=== PATIENT | male | born 1970 | race Caucasian/White ===

== ENCOUNTER 2018-03-02 19:48 | Inpatient (IN) | payer OTHER ==
--- NOTE | 2018-03-02 19:56 | CPEKG ---
Heart Rate: 96 RR Interval: 625 P-R Interval: 160 QRSD Interval: 94 QT Interval: 360 QTC Interval: 455 P [place]: 52 QRS [place]: 30 T Wave [place]: 45 EKG Severity - BORDERLINE ECG - EKG Impression: SINUS RHYTHM EKG Impression: st depression lateral leads EKG Impression: PROBABLE LEFT ATRIAL ABNORMALITY Electronically Signed By: Venkat Spence 02-Mar-2018 21:47:20
[2018-03-02] MEDS ORDERED: ASPIRIN EC 325 MG TAB PO ONE (20:03)
[2018-03-02] MEDS ORDERED: ASPIRIN 81 MG CHEWABLE TAB ONE (20:04)
[2018-03-02] MEDS ORDERED: NITROGLYCERIN 0.4 MG BTL SL ONE (20:05)
[2018-03-02] MEDS ORDERED: ASPIRIN 81 MG CHEWABLE TAB PO ONE (20:06)
--- NOTE | 2018-03-02 20:09 | EDPHY ---
H & P Time Seen by Provider: 03/02/18 19:53 HPI/ROS: CHIEF COMPLAINT: Left-sided chest pressure HISTORY OF PRESENT ILLNESS: Patient is a 47-year-old male with no significant past medical history who reports 2 days of left-sided chest pressure. He reports dull pressure-like sensation in the left chest starting yesterday during the day. There is no association with exertion. He denies any shortness of breath. He does report feeling sweaty. Pressure does not radiate. He has no prior history of coronary artery disease, dyslipidemia, diabetes. He does not smoke. He has no history of DVT or PE denies any cough or leg swelling. Does have a strong family history of [place] his father has had 7 heart attacks the 1st of which was in he was 46. He had a stress test done at the age of 41 which he reports was normal. REVIEW OF SYSTEMS: Constitutional: No fever, no chills. Eyes: No discharge. ENT: No sore throat. Cardiovascular: + chest pain, no palpitations. Respiratory: No cough, no shortness of breath. Gastrointestinal: No abdominal pain, no vomiting. Genitourinary: No hematuria. Musculoskeletal: No back pain. Skin: No rashes. Neurological: No headache. (Yong Garrido) Physical Exam: General Appearance: Alert and no distress. Eyes: Pupils equal and round no injection. Respiratory: Chest is nontender, lungs are clear to auscultation. Cardiac: regular rate and rhythm. Gastrointestinal: Abdomen is soft and nontender, no masses, bowel sounds normal. Musculoskeletal: Neck is supple and nontender. Extremities have full range of motion and are nontender. No lower extremity edema or unilateral calf swelling. Skin: No rashes or lesions. (Yong Garrido) Constitutional: Initial Vital Signs Temperature (C) 36.5 C 03/02/18 19:52 Heart Rate 97 03/02/18 19:52 Respiratory Rate 18 03/02/18 19:52 Blood Pressure 167/97 H 03/02/18 19:52 O2 Sat (%) 99 03/02/18 19:52 O2 Delivery Mode Room Air Allergies/Adverse Reactions: No Known Allergies Allergy (Verified 03/02/18 20:49) Home Medications: Medication Instructions Recorded NK [No Known Home Meds] 03/02/18 Medical Decision Making - Diagnostics EKG Interpretation: EKG: Complete interpretation has been separately recorded in the [facility] archive. Summary impression: Sinus rhythm, rate 96, ST segment depression noted in the lateral leads. (Venkat Spence) Imaging Results: Imaging Impressions Chest X-Ray 03/02/18 20:02 Impression: 1. No active cardiopulmonary disease seen. Other Provider: PHYSICIAN DOCUMENTATION: The patient was evaluated and managed by the Physician Tapping Machine Operator Automatic. My co- signature indicates that I have reviewed this chart and I agree with the findings and plan of care as documented. I am the secondary supervising physician. (Venkat Spence) - Data Points Laboratory Results: Laboratory Results 03/02/18 19:55 03/02/18 19:55 03/02/18 03/02/18 03/02/18 20:03 19:55 19:55 WBC RBC Hgb Hct MCV MCH MCHC RDW Plt Count Sodium 137 mEq/L mEq/L (135-145) Potassium 3.2 mEq/L L mEq/L (3.3-5.0) Chloride 105 mEq/L mEq/L (97-110) Carbon Dioxide 23 mEq/l mEq/l (22-31) Anion Gap 9 mEq/L mEq/L (8-16) BUN 20 mg/dL mg/dL (7-23) Creatinine 1.0 mg/dL mg/dL (0.7-1.3) Estimated GFR > 60 Glucose 103 mg/dL H mg/dL (70-100) Calcium 9.5 mg/dL mg/dL (8.5-10.4) POC Troponin I 0.00 ng/mL ng/mL (0.00-0.08) TSH Pending 03/02/18 19:55 WBC 8.28 10^3/uL 10^3/uL (3.80-9.50) RBC 5.18 10^6/uL 10^6/uL (4.40-6.38) Hgb 16.0 g/dL g/dL (13.7-17.5) Hct 44.2 % % (40.0-51.0) MCV 85.3 fL fL (81.5-99.8) MCH 30.9 pg pg (27.9-34.1) MCHC 36.2 g/dL g/dL (32.4-36.7) RDW 12.7 % % (11.5-15.2) Plt Count 182 10^3/uL 10^3/uL (150-400) Sodium Potassium Chloride Carbon Dioxide Anion Gap BUN Creatinine Estimated GFR Glucose Calcium POC Troponin I TSH Medications Given: Discontinued Medications Aspirin (Aspirin) 324 mg PO EDNOW ONE Stop: 03/02/18 20:07 Last Admin: 03/02/18 20:06 Dose: 324 mg Aspirin Buffered (Aspirin Ec) 325 mg PO EDNOW ONE Stop: 03/02/18 20:04 Last Admin: 03/02/18 20:07 Dose: Not Given Lorazepam (Ativan Injection) 0.5 mg IVP ONCE ONE Stop: 03/02/18 21:09 Last Admin: 03/02/18 21:36 Dose: 0.5 mg Nitroglycerin (Nitrostat) 0.4 mg SL EDNOW ONE Stop: 03/02/18 20:06 Last Admin: 03/02/18 20:19 Dose: 0.4 mg Point of Care Test Results: Chemistry 03/02/18 20:03 POC Troponin I 0.00 ng/mL ng/mL (0.00-0.08) Departure - Departure Disposition: [facility] Inpatient Acute Clinical Impression: Chest pain Condition: Fair
[2018-03-02] MEDS ORDERED: LORazepam 2 MG/ML INJ IVP ONE (21:08)
[2018-03-02] MEDS ORDERED: ONDANSETRON 4 MG/2 ML VIAL IVP PRN (21:29)
[2018-03-02] MEDS ORDERED: ONDANSETRON DISINTEGRATING 4 MG TAB PO PRN (21:29)
[2018-03-02] MEDS ORDERED: ACETAMINOPHEN 325 MG TAB PO PRN (21:29)
[2018-03-02] MEDS ORDERED: PROMETHAZINE HCL 25 MG/ML INJ IVP PRN (21:29)
[2018-03-02] MEDS ORDERED: LORazepam 2 MG/ML INJ IVP PRN (21:29)
[2018-03-02] MEDS ORDERED: oxyCODONE IR 5 MG TAB PO PRN (21:29)
[2018-03-02] MEDS ORDERED: POTASSIUM CL 20 MEQ/15 ML UDCUP PO ONE (21:31)
--- NOTE | 2018-03-02 22:41 | GHP ---
[f rep st] HISTORY AND PHYSICAL DATE OF ADMISSION: 03/02/2018 CHIEF COMPLAINT: Chest pain. HISTORY: This is a 47-year-old man with no significant past medical history, presenting with chest p ain for approximately the last 48 hours. He notes that it is substernal on the left side. He denies any radiation. He describes it as dull and pressure-like. He has never had similar symptoms in the past. He notes that nothing seems to make it better or worse. At the time of my evaluation, he mai cribes being extremely anxious and afraid that he is dying due to this pain. He does note that he greer s a very strong family history of coronary disease with his father having suffered 7 MIs in his 40s. He denies having usual issues with significant anxiety or any other psychiatric history in the past. PAST MEDICAL HISTORY: None. PAST SURGICAL HISTORY: Orthopedic surgeries remotely. FAMILY HISTORY: Father with 7 MIs with his 1st in his 40s. Paternal grandfather also with heart dis ease, but he is not sure what age. SOCIAL HISTORY: The patient is a never smoker. He drinks alcohol occasionally. He has 2 children, ages 8 and 11. 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 REVIEW OF SYSTEMS: 10-point review of systems obtained, negative except as per HPI. HOME MEDICATIONS: None. ALLERGIES: None. PHYSICAL EXAMINATION: VITAL SIGNS: BP 136/84, heart rate 82, respiratory rate 16, O2 saturation 99% on room air, temperature is 36.5. GENERAL APPEARANCE: Well-developed, well-nourished man. He is a wake and alert. He is very anxious appearing. EYES: Anicteric. HENT: Oropharynx clear. CARDIOVA SCULAR: Regular rate and rhythm, no MRG. PULMONARY: CTA bilaterally. Normal work of breathing. A BDOMEN: Soft, nontender. Positive bowel sounds. EXTREMITIES: No clubbing, cyanosis, or edema. SK IN: Warm, dry, well perfused. NEURO/PSYCH: Oriented, appropriate, pleasant, very anxious. CLINICAL DATA: Labs reviewed. CBC is unremarkable. Chemistries remarkable only for potassium of 3. 2. Initial troponin 0. IMAGING: Chest x-ray personally reviewed and interpreted, shows no acute process. EKG personally reviewed and interpreted, showing lateral ST depressions without other clear ischemic changes and no olds to compare. ASSESSMENT AND PLAN: This is a 47-year-old man with no significant past medical history but strong f amily history for coronary disease, presenting with chest pain. 1. Chest pain, somewhat abnormal EKG, unfortunately without any olds to compare. His pain is unremi tting and severe and associated with significant anxiety and sense of doom. Will monitor overnight o n telemetry. Will obtain serial troponins. I have asked Cardiology to consult in the morning. 2. Anxiety. Again, patient is extraordinarily anxious regarding this current process. He denies ch ronic psychiatric issues. Will provide p.r.n. Ativan. 3. Hypokalemia. Will replete. Will recheck in the morning. 4. Observation status. Patient likely to require less than 48-hour stay for evaluation and manageme nt of above. Patient new to my care. Old records reviewed, summarized as per HPI and Past Medical History. Care plan reviewed with ER physician. The patient reviewed with Dr. Adrian Maravilla. /[id number]/MODL
--- NOTE | 2018-03-02 23:02 | CPEKG ---
Heart Rate: 88 RR Interval: 682 P-R Interval: 164 QRSD Interval: 84 QT Interval: 380 QTC Interval: 460 P [place]: 43 QRS [place]: 30 T Wave [place]: 49 EKG Severity - NORMAL ECG - EKG Impression: SINUS RHYTHM Electronically Signed By: Juan Ramon Fletcher 06-Mar-2018 16:23:32
[2018-03-02] MEDS: CALCIUM CARBONATE 500 MG CHEWABLE TAB PO PRN (23:57)
[2018-03-03] MEDS: CALCIUM CARBONATE 500 MG CHEWABLE TAB PO PRN (06:26)
[2018-03-03] MEDS: LORazepam 0.5 MG TAB PO PRN ×3 (08:10→18:07)
--- NOTE | 2018-03-03 09:43 | ASMTCAGE ---
CAGE Do you feel you ought to Answers: Yes cut down on your drinking or drug use? Do people annoy you by Answers: No criticizing your drinking or drug use? Do you feel guilty about Answers: No your drinking or drug use? 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 Additional Comments averages 10 drinks/week. States drinks 2-3 glasses of wine daily. Wants to cut back in context of living a longer life. Date Signed: 03/03/2018 09:42 AM Electronically Signed By:Nirali Mccord RN
--- NOTE | 2018-03-03 09:50 | ASMTCMCOM ---
CM Note CM Note Notes: 03/03/2018 Case Management Note Met w/pt and Kalyani [phone] (c) [phone] (h) to discuss d/c needs. Pt shared that his mom in September. Kalyani shared that pt is still grieving. Pt reports difficulty sleeping the last 2 weeks. Pt reports taking Ambien to sleep. Discussed the physical effects of grief, anxiety and panic. Provided written information for patient. Pt requested information on counseling. Provided list of counselors that take [facility]. Encouraged pt to contact [facility] to find in network counselors. There are no further discharge needs identified. Pt has supportive and is independent in ADL's. Case Management d/c poc: independent Case Management available if needs change. Date Signed: 03/03/2018 09:49 AM Electronically Signed By:Nirali Mccord RN
--- NOTE | 2018-03-03 11:29 | GCON ---
[f rep st] CONSULTATION CARDIOLOGY CONSULTATION. REFERRING PHYSICIAN: Markie Sarabia MD INDICATION FOR CARDIOLOGY CONSULTATION: Episodes of chest pressure in patient with known abnormal el ectrocardiogram, significant family history of coronary artery disease at early onset age. HISTORY OF PRESENT ILLNESS: The patient is a 47-year-old male who is known to our practice, his prim mahin occupational health rn is Dr. Dahl. He has significant cardiac risk factors that include family history of early onset of coronary artery disease, reporting father had his first myocardial infarction at age of 47. The patient reports he had been in his normal state of health until last Saturday evening, in w [facility] he reported being awoken suddenly with mid left anterior chest pressure, felt like it was associ ated with some diaphoresis, but no shortness of breath or nausea. He reported the pain as very mild, was able to go back to sleep afterwards, reporting symptoms did subside when he awoke the following morning. He did fine all Saturday, but reporting Saturday of having mild episodes of chest pressure on and off, similar to what he had, usually associated with rest. He does report he was significantly active during the day by mowing the yard, playing with his kids, and did not know the symptoms. He o nly felt like they came on when he was sitting and resting. Again on Saturday, symptoms were associate d with some diaphoresis, but no nausea or shortness of breath. Due to this recurrence of symptoms, gopal bedolla became significantly concerned, especially as he is very close to the age that his father was when he had his first IN, and came to [facility] for further evaluation. Patient states lavon t the pressure that he has been experiencing, usually can last for hours, but has gone away with him exerting himself. He does report it is not positional and upon palpitation, it is not reproduced. Upon arrival to the emergency department, he did undergo initial chest x-ray, which showed no acute c oronary cardiopulmonary process. His electrocardiogram did show sinus rhythm with ST depression in i nferolateral leads. Initial troponin was negative. He remained on telemetry, and throughout the g, sinus rhythm on the monitor with occasional PVC, but no malignant arrhythmias or pauses. He re ports the chest pressure has been on-and-off all throughout the evening and into this morning. Curre ntly, he has none while he is walking around the unit. Repeated troponin this morning was negative a lso. As mentioned above, patient does state that he has been in his normal state of health. He denies any recent fevers, chills, or night sweats. Denies any palpitations, orthopnea, PND, edema, lightheaded ness, near-syncope, or syncopal events. He does inform me that he has recently returned from a trip from [place] 2 weeks ago, and since then, he has had difficulty sleeping, reporting that he has been needing to use p.r.n. Ambien, which has helped. Patient's significant cardiac risk factor is family history of CAD, reporting father having his first IN at age 47, and had suffered from 7 MIs since . The patient denies of any history of hypertension, hyperlipidemia, previous smoking, diabetes, p eripheral vascular disease. PAST MEDICAL HISTORY: The patient reports he had episodes of indigestion in the past, which he usual ly treats with Tums. PAST SURGICAL HISTORY: He reports he has had 3 orthopedic surgeries, 1 to the right knee, 1 to the r ight elbow, and 1 to the right ACL. FAMILY HISTORY: The patient has significant family history of father with MIs with first IN at age 4 7. Patient's paternal grandfather also had heart disease, but is uncertain at what age it was. 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 He is . He has 2 children who are 2 small children who are alive and well. He denies any smoking history. Does report he drinks 2-3 d rinks 3-4 times a week. Denies of any illicit drug use. ALLERGIES: Patient has no known drug allergies. HOME MEDICATIONS: Patient reports he had been on aspirin therapy in the past, but currently is on no home medications. REVIEW OF SYSTEMS: A 10-point review of systems done on the patient all negative, except as mentione d above. PHYSICAL EXAMINATION: GENERAL APPEARANCE: Medium built, well-groomed male. He is alert a nd oriented to person, place, time, and situation. Appears to be under no acute distress. VITAL SIG NS: Current: Blood pressure of 133/83, heart rate of 82, sinus rhythm on the monitor, respirations are 18, saturating 97% on room air. Temperature 36.2 degrees Celsius. HEENT: Head is normocephalic . Lips and tongue are pink and moist with no signs of cyanosis. Conjunctivae pink. NECK: Trachea is midline. +2 carotid pulses bilateral. No auscultated bruits. No jugular vein distention. RESPI RATORY: Lungs are clear to auscultation. No rhonchi, rales or wheezes. No accessory muscle use. N o intercostal muscle retraction noted. CARDIAC: Regular rate, regular rhythm, S1, S2. No S3, S4, g allops, rubs, or murmurs noted. ABDOMEN: Soft, nontender. Bowel sounds x4 quadrants. No organomeg sae. No palpable masses. SKIN: [place], warm, dry. No cyanosis. No clubbing. No peripheral edema. VASCULAR: +2 carotids bilateral, +2 radials bilateral, +1 dorsal pedal and posterior tibial pulses bilateral. SKIN: [place], warm, dry. No cyanosis. No clubbing. No peripheral edema. LABORATORY/IMAGING: Drawn on admission showed WBC of 8.28, hemoglobin 16.0, hematocrit of 44.2, plat elet count of 182. Sodium of 137, potassium 3.2, chloride 105, CO2 23, BUN 20, creatinine 1.0, gluco se 103, calcium 9.5. TSH of 1.720. The patient has been noted to have on admission of a troponin of less than 0.012. Repeated troponin this morning was also less than 0.012. Morning a.m. labs show s odium 138, potassium 3.9, chloride 110, CO2 24, BUN 16, creatinine 1.0, glucose 97, calcium 9.5. Fas ting lipid panel showing triglycerides 68, chloride 146, HDL 51, LDL 81. Chest x-ray as mentioned above. Admission electrocardiogram showed sinus rhythm, with ST depression noted in inferolateral leads. In comparison to electrocardiogram done October 04, 2016, in our office, ST depression is new. Also no cuauhtemoc, patient has RSR prime noted in V2 (incomplete right bundle branch block, this is unchanged). Reviewing Dr. Starkey' last office note, it appears at age of 41, patient did undergo echocardiogram bubble study, which was normal. He also in 2011, had a cardiac calcium scoring heart scan done a score of 0. ASSESSMENT/PLAN: 1. Chest pressure: 47-year-old male with significant family history of coronary artery disease at e joseph onset age with somewhat atypical chest pressure for cardiac ischemia. He has been noted to have new electrocardiogram changes with new ST depression in inferolateral leads. Negative troponin x2. He did have a cardiac calcium score of 0 in 2012. At this time with his new electrocardiogram hutchins es and chest pressure with significant family history of early onset of coronary artery disease, I do think it would be a valid for the patient to be further risk analyzed for ischemia. I would like hi m to undergo ETT/MPI study, which we will plan on doing later this afternoon. Also, with his recent previous trip to [place] with significant plane ride, and immobility, I do think it would be valid for him to have a D-dimer done for evaluation for possible pulmonary embolism. Lastly, sathish major does report significant anxiety and gastrointestinal problems in the past. Will start him on Pr otonix to help rule out potential gastroesophageal reflux disease. Will restart him on aspirin thera py at 81 mg p.o. daily. 2. Anxiety: Patient was noted to be extremely anxious about his symptoms. He does says when he thi nks about it, this could potentially make his symptoms worse. Hospitalist services had started him o n p.r.n. Ativan, which he says has significantly helped. 3. Hypokalemia: Patient was noted to have a low potassium of 3.2 on admission. He did receive supp lemental therapy, and today's potassium is 3.9. Thank you for this consultation. We will be glad to follow along with you. /[id number]/MODL
[2018-03-03] MEDS ORDERED: KETOROLAC 30 MG/1 ML SDV IVP ONE (11:35)
[2018-03-03] MEDS: PANTOPRAZOLE SODIUM 40 MG TAB PO SCH (11:51)
[2018-03-03] MEDS: ASPIRIN EC 81 MG TAB PO SCH (12:00)
--- NOTE | 2018-03-03 15:30 | CPR ---
[f rep st] NONINVASIVE CARDIAC PROCEDURE REPORT INDICATION FOR PROCEDURE: Episode of chest pressure, abnormal electrocardiogram , significant family risk of coronary artery disease at early . PRE: After obtaining informed consent, patient was placed on electrocardiogram. Initial EKG shows sinus rhythm, mild ST depression in V5 and V6, RSR prime noted in V2. The patient denies any chest pain, shortness of breath, or symptoms suggesting of ischemia. STRESS: The patient was placed on exercise treadmill, following standard Rishi protocol the following findings: 1. Patient exercised for 10 minutes. 2. 10.8 METS. 3. Patient obtained a heart rate of 178 beats per minute, which was 102% of MPHR. 4. Patient had no chest pain or symptoms of ischemia during exertion or recovery. 5. Patient was noted to have [address] depression in inferolateral leads. 6. BP response: Rest 120/80, peak 158/80. 7. SpO2 remained greater than 90% throughout testing. 8. Patient had occasional PVC during rest stress and recovery phase. 9. Test was stopped due to maximum effort. 10. Bowling treadmill score of 0 placing him at intermediate risk. Equivocal stress test for ischemia. RECOVERY: Patient recovered for 5 minutes with heart rate returning back to baseline and EKG back to baseline. Continued to report no symptoms of ischemia. Occasional PVC but no other malignant arrhythmias noted throughout testing. IMPRESSION: 47-year-old male, admitted to the hospital with atypical chest pressure with noted abnormal electrocardiogram, mild ST depression in inferolateral leads. Undergoing ETT MPI study, was able to go 10 minutes with no symptoms of ischemia. Was noted to have 2 mm high of upsloping ST depression in inferolateral leads. Placing testing positive for cardiac ischemia. Potentially patient's underlying resting EKG has given the test a high potential for false positive. Would await MPI study for further evaluation for ischemia. Currently, vital signs are stable and the patient has no complaints. Being sent down to Nuclear Medicine for post-stress imaging. Results reviewed with Dr. Linares. /[id number]/MODL MTDD
[2018-03-03] MEDS ORDERED: NITROGLYCERIN 0.4 MG BTL SL PRN (16:47)
[2018-03-03] MEDS ORDERED: TEMAZEPAM 15 MG CAP PO PRN (16:47)
[2018-03-03] MEDS ORDERED: LORazepam 2 MG/ML INJ IVP PRN (17:44)
--- NOTE | 2018-03-03 18:05 | PDCARPN ---
Cardiology Progress Note Chief Complaint: Ongoing left-sided chest pressure Assessment/Plan: Assessment: ETT did show ST depression in inferior lateral leads, equivocal for ischemia. MPI imaging reviewed with Dr. Linares, who felt potentially inferior wall ischemia. Patient still having ongoing episodes of mild chest pressure. Recommendation for cardiac catheterization to be done tomorrow morning. Patient has been made NPO after midnight. Risks and benefits of procedure explained to both patient and , they verbalize understanding. Continue aspirin therapy. Sublingual nitroglycerin ordered. Due to patient's ongoing symptoms, abnormal stress testing, and plan for further testing, he will need to be admitted to the hospital for greater than months. Change status of admission to inpatient. 03/03/18 18:02 Reviewed/Discussed With: other (Dr Linares) Objective: Vital Signs (8 Hrs) Temp Pulse Resp BP Pulse Ox 03/03/18 15:18 36.9 C 80 16 126/90 H 97 03/03/18 12:00 36.9 C 72 16 129/87 H 99 Intake/Output (24 Hrs) 03/02/18 03/03/18 03/04/18 05:59 05:59 05:59 Intake Total 400 Balance 400 Intake: Oral (ml) 400 Other: Weight 86.7 kg Number of Voids Toilet 2 Result Diagrams: 03/02/18 19:55 03/03/18 05:44 Cardiac Labs: Cardiac Lab Results (72 Hrs) 03/03/18 03/02/18 05:44 23:42 Troponin I < 0.012 < 0.012 - Physical Exam Constitutional: WDWN, no apparent distress Ears, Nose, Mouth, Throat: moist mucous membranes Cardiovascular: regular rate and rhythm, pulses symmetric bilat, No jugular vein distention Peripheral Pulses: 1+: dorsalis-pedis (R), dorsalis-pedis (L), 2+: carotid (R), carotid (L) Respiratory: clear to auscultate bilat, no crackles, no wheezes Gastrointestinal: normoactive bowel sounds Skin: no rashes, warm, no edema Neurologic: AAOx3 Psychiatric: cooperative, interactive, following commands, anxious ICD10 Worksheet Patient Problems: Problems Problem Status Onset Chest pain Acute
[2018-03-04 03:57] LABS: PLATELET COUNT 148 10^3/uL (150-400)
[2018-03-04 04:06] LABS: INR 1.09 (0.83-1.16); PROTIME(PATIENT) 14.3 SEC (12.0-15.0)
[2018-03-04] MEDS: LORazepam 0.5 MG TAB PO PRN (04:53)
[2018-03-04] MEDS ORDERED: NS 1,000 ML IV ONE (06:00)
[2018-03-04] MEDS ORDERED: FAMOTIDINE 20 MG TAB PO ONE (06:00)
[2018-03-04] MEDS ORDERED: DIAZEPAM 5 MG TAB PO ONE (06:00)
[2018-03-04] MEDS ORDERED: diphenhydrAMINE 25 MG CAP PO ONE (06:00)
[2018-03-04] MEDS ORDERED: ASPIRIN EC 325 MG TAB PO ONE (06:00)
[2018-03-04] MEDS ORDERED: DIAZEPAM 5 MG TAB ONE (07:13)
[2018-03-04] MEDS ORDERED: VERAPAMIL 5 MG/2 ML VIAL ONE (07:43)
[2018-03-04] MEDS ORDERED: HEPARIN 10,000 UNIT/10 ML MDV (1,000 UNIT/ML) ONE (07:43)
[2018-03-04] MEDS ORDERED: LIDOCAINE 1% 300 MG/30 ML SDV ONE (07:43)
[2018-03-04] MEDS ORDERED: MIDAZOLAM 2 MG/2 ML VIAL ONE ×3 (07:43→09:12)
[2018-03-04] MEDS ORDERED: fentaNYL 100 MCG/2 ML INJ ONE ×2 (07:43→09:12)
[2018-03-04] MEDS ORDERED: IOPAMIDOL (ISOVUE 370) 100 ML BTL IV ONE (07:44)
--- NOTE | 2018-03-04 09:10 | PDMN ---
Medical Necessity Medical necessity: MCG: M40 angina A-2 days: abnormal stress testing, persistent chest pressure, abnormal EKG- ST depressions, equivocal for ischemia. , with sig. family cardiac hx., req further eval and monitoring- cardiac cath scheduled. status change to INPT 03/03/18 @ 18:02
[2018-03-04] MEDS: ASPIRIN EC 81 MG TAB PO SCH (11:14)
[2018-03-04] MEDS: PANTOPRAZOLE SODIUM 40 MG TAB PO SCH (11:21)
[2018-03-04] MEDS ORDERED: ROSUVASTATIN CALCIUM 10 MG TAB PO SCH (11:30)
[2018-03-04] MEDS ORDERED: NEBIVOLOL HCL 5 MG TAB PO SCH (11:30)
--- NOTE | 2018-03-04 13:53 | ASMTLACE ---
LACE Length of stay for Answers: Less than 1 day current admission # of Emergency department Answers: 1-2 visits in the last 6 months Score: 1 Date Signed: 03/04/2018 01:53 PM Electronically Signed By:Zahraa Orozco RN
--- NOTE | 2018-03-04 13:57 | ASMTCMCOM ---
CM Note CM Note Notes: Patient chart reviewed. Discussed in rounds. S/P angiogram. medically cleared for dc. No needs identified CM available should needs change. Plan: DC to home independently. Date Signed: 03/04/2018 01:56 PM Electronically Signed By:Zahraa Orozco RN
[2018-03-04 14:00] VITALS: BP 119/81
--- NOTE | 2018-03-04 14:09 | HOSPPROG ---
Hospitalist Progress Note Assessment/Plan: CAD: mild flow-limiting disease on cath. Medical management #Anxiety #Mild MR Disp: DC today per cards Subjective: no chest pain Objective: Vital Signs Temp Pulse Resp BP Pulse Ox 36.7 C 77 12 119/81 H 96 03/04/18 11:08 03/04/18 13:00 03/04/18 13:00 03/04/18 13:00 03/04/18 13:00 Laboratory Results 03/04/18 03:44 03/04/18 03:44 PT 14.3 SEC (12.0-15.0) 03/04/18 03:44 INR 1.09 (0.83-1.16) 03/04/18 03:44 - Time Spent With Patient Time Spent with Patient: greater than 25 minutes Time Spent with Patient: Greater than 25 minutes spent on this patients care, greater than 50% of time spent counseling, educating, and coordinating care regarding the above mentioned plan. - Physical Exam Constitutional: no apparent distress Eyes: PERRL Ears, Nose, Mouth, Throat: moist mucous membranes Cardiovascular: regular rate and rhythym Respiratory: no respiratory distress Gastrointestinal: normoactive bowel sounds Musculoskeletal: full muscle strength Neurologic: AAOx3, CN II-XII Intact Psychiatric: interacting appropriately ICD10 Worksheet Patient Problems: Problems Problem Status Onset Chest pain Acute
--- NOTE | 2018-03-04 21:19 | GDS ---
[f rep st] DISCHARGE SUMMARY ADMISSION DIAGNOSES: 1. Chest pain. 2. Patient with significant family history of coronary artery disease at early onset. 3. Hypokalemia. 4. Anxiety. DISCHARGE DIAGNOSES: 1. Mild [id number]-[id number] coronary artery disease. 2. Anxiety. 3. Trivial mitral regurgitation. PROCEDURES PERFORMED DURING HOSPITALIZATION: 1. Electrocardiogram. 2. Chest x-ray. 3. ETT/MPI study. 4. Coronary angiogram. 5. Echocardiogram. HISTORY OF PRESENT ILLNESS: Please see H and P and consultation note. Briefly, the patient is a 47- year-old male, who has been experiencing on and off chest pressure since Saturday night, with associate d symptoms of shortness of breath and diaphoresis, concerned him that he came to emergency at [facility] for further evaluation. The patient has significant cardiac risk factors, father h aving his 1st myocardial infarction at age 47. HOSPITAL COURSE: Patient admitted through the emergency department, initial electrocardiogram did sh ow sinus rhythm, with ST depression noted in the inferior lateral leads. Patient admitted to telemet ry unit, with cycled troponins, all within less than 0.012. D-dimer was done, which was less than 0. 27. He did undergo ETT/MPI study, exercise treadmill testing, and he was noted to have 2 mm of up-sl oping ST depression in inferior lateral leads, Bowling treadmill score of 0 placing him at intermediate cardiovascular risk. MPI study noted small inferior lateral perfusion deficit, possibly related to a rtifact or less likely infarct. Reviewed with of Radiology. Images reviewed with Dr. Linares, felt potentially mild ischemia inferior lateral loss. Due to patient's ongoing symptoms, ab normal exercise treadmill testing, and significant family history, it was felt best that patient be f urther evaluated for cardiac ischemia by undergoing cardiac catheterization. He did proceed to have this procedure done this morning by Dr. Linares, in which was noted left main, normal, with no signifi cant flow-limiting disease, LAD was a 5 mm vessel, there was noted some minor dye streaming in the LA D prior to the septal perforators, but no flow-limiting obstructions were identified. Circumflex and RCA showed MACI-3 flow. LVEDP was estimated at 10 mmHg, with an ejection fraction of 60%, off the L V Gram, it appeared that mitral valve prolapse of the posterior leaflet was noted. Hemostasis was ob tained by TR band, and the patient was sent back to the [facility] for recovery. During that time, he did u ndergo echocardiogram which showed normal LV size with normal LV global systolic function, EF was est imated between 65% and 70%, trivial. Anterior pericardial effusion. The patient was noted to have t rivial MR, with borderline aortic root dilation. At this time, patient is up and walking the unit, a nd hemostasis has been obtained at his access site, left radial wrist. He reports since yesterday ev ening, he has had no further episodes of chest pain or pressure. He has been up and walking the unit without difficulty. The patient was noted throughout his hospitalization, as being extremely anxiou s, requiring an occasional dose of Ativan. At current time, he reports no further anxiety, with know ing of his coronary arteries. PHYSICAL EXAMINATION: Done today: GENERAL APPEARANCE: Thin, well-groomed male. He is al ert and oriented to person, place, time, situation. Appears to be under no acute distress. VITAL SI GNS: Current vital signs are blood pressure 119/81, heart rate of 77, sinus rhythm on the monitor, t he patient has been noted to have occasional PVC, but no malignant arrhythmias or pauses. Respiratio ns are 12, saturation 96% on room air. HEENT: Head is normocephalic. Lips and tongue are pink and moist with no signs of cyanosis. Conjunctivae pink. NECK: Trachea is midline, +2 carotid pulses bi lateral. No auscultated bruits. No jugular vein distention. RESPIRATORY: Lungs are clear to auscu ltation, no rhonchi, rales or wheezes. No accessory muscle use. No intercostal muscle retraction no cuauhtemoc. CARDIAC: Regular rate, regular rhythm, S1, S2, no S3, S4, gallops, rubs, or murmurs noted. AB DOMEN: Soft, nontender, bowel sounds x4 quadrants. No organomegaly. No palpable masses. SKIN: Pi nk, warm, dry, no cyanosis, no clubbing, no peripheral edema. VASCULAR: +2 carotids bilateral, +2 r adials bilateral, +1 dorsal pedal and posterior tibial pulses bilateral. Left wrist, catheter insert ion site, with no redness, swelling, drainage, ecchymosis, or hematoma. Normal CMS checks. Normal c apillary refill to fingers. LABORATORY STUDIES: Drawn today show WBC of 7.11, hemoglobin 15.5, hematocrit of 42.7, platelet coun t 148. INR 1.09. Sodium of 138, potassium 4.1, chloride 109, CO2 was 26, BUN 15, creatinine 1.1, gl ucose 90, calcium 9.1, magnesium 2.1. The patient as mentioned above, since hospitalization, had tro ponin levels drawn, which were both less than 0.012. On admission, he was noted to have a TSH level drawn at 1.720, fasting lipid panel done on the showed triglycerides of 68, total cholesterol of 146, LDL of 81, HDL of 51. D-dimer was drawn on the morning of the , which was less than 0.27. PROCEDURES: Cardiac catheterization as mentioned above. Echocardiogram as mentioned above. Initial electrocardiogram as mentioned above. Chest x-ray showed no acute cardiopulmonary process, done on admission. DISCHARGE DISPOSITION: Patient will be discharged home in stable condition. He is under activity re strictions of not lifting more than 10 pounds with the left hand for the next week and no strenuous a ctivity for the next 2 weeks. DISCHARGE MEDICATIONS: Please see discharge medication reconciliation sheet. Noted that patient had mild [id number] CAD, he has been started on aspirin therapy at 81 mg p.o. daily, he has also been started on Bystolic at 5 mg p.o. daily, and Crestor at 5 mg p.o. daily. He has been given a lab slip to have a fasting lipid, liver, and CPK drawn in 6-8 weeks after starting Crestor for re-evalua tion therapy. Patient noted outpatient also been started on Protonix 40 mg p.o. daily. DISCHARGE INSTRUCTIONS: Post-cardiac catheterization discharge instructions went over with the patie nt and including activity restrictions, bleeding precautions, monitoring for signs of infection, and medication compliancy. At the time of discharge, both patient and verbalized understanding all instructions. The patient has been encouraged to follow up with his PCP regarding his significa nt anxiety issues during stress. At the time of discharge, patient and verbalized understanding all instructions and have no questions or concerns. 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 He has been told that if there are any problems or concerns, post-discharge, he is to notify our office or return to the hospital. Total time spent on discharge: Greater than 30 minutes. /[id number]/MODL
== END 2018-03-04 14:27 | disposition home or self-care (01) | DRG 287 ==
LOC: F2W 21:46 → OBSVTOIN 03-03 18:02
PROVIDERS: ADMIT Internal Medicine; ATTEND Internal Medicine
PROC: B2111ZZ Fluoroscopy of Multiple Coronary Arteries using Low Osmolar Contrast (ICD-10-PCS; principal; 2018-03-03)
PROC: B2151ZZ Fluoroscopy of Left Heart using Low Osmolar Contrast (ICD-10-PCS; principal; 2018-03-03)
PROC: 4A023N7 Measurement of Cardiac Sampling and Pressure, Left Heart, Percutaneous Approach (ICD-10-PCS; principal; 2018-03-03)
DX: R07.9 Chest pain, unspecified (principal); I34.0 Nonrheumatic mitral (valve) insufficiency; F41.9 Anxiety disorder, unspecified; I25.10 Atherosclerotic heart disease of native coronary artery without angina pectoris; Z82.49 Family history of ischemic heart disease and other diseases of the circulatory system
CPT/HCPCS: 84484-PO; A9500; G0378; J1644; J1885; J2060; J2250; J3010; Q9967